=== PATIENT | female | born 1970 | race Caucasian/White ===

== ENCOUNTER 2017-07-21 12:32 | Emergency (ER) | payer SELFPAY ==
[2017-07-21 13:02] VITALS: TEMP 97.9
--- NOTE | 2017-07-21 13:11 | ED.PDOC ---
History of Present Illness - General Chief Complaint: ENT Problem Stated Complaint: right ear pain Time Seen by Provider: 07/21/17 12:58 Source: patient Exam Limitations: no limitations - History of Present Illness Initial Comments: PT REPORTS RIGHT EAR PAIN, RIGHT SIDED NECK PAIN X 1.5 WKS ASSOCIATED WITH A NON PRODUCTIVE COUGH. PT REPORTS THAT SHE HAS HAD EXPOSURE TO STREP BOTH HER GRANDPARENTS WERE RECENTLY DIAGNOSED. PT DENIES SORE THROAT OR FEVER. Timing/Duration: last week Severity: mild EENT Location: ear (R) Prearrival Treatment: no prearrival treatment Improving Factors: nothing Worsening Factors: nothing Associated Symptoms: cough Allergies/Adverse Reactions: Allergies Aspirin Allergy (Verified 07/21/17 13:04) Codeine Allergy (Verified 07/21/17 13:04) Home Medications: Ambulatory Orders Benzonatate Perles [Tessalon Perles] 200 mg PO TID PRN #30 cap 07/21/17 Ibuprofen 800 mg PO Q8HR PRN #30 tab 07/21/17 Review of Systems - Review of Systems Constitutional: Denies: chills, fever EENTM: States: see HPI, ear pain. Denies: nose congestion, throat pain, mouth swelling Respiratory: States: see HPI, cough. Denies: short of breath Cardiology: Denies: chest pain, palpitations Gastrointestinal/Abdominal: Denies: abdominal pain, vomiting Past Medical History (General) - Patient Medical History Hx Seizures: No Hx Stroke: No Hx Asthma: No Hx of COPD: No Hx Cardiac Disorders: No Hx Gastroesophageal Reflux: No Surgical History: cholecystectomy - Social History Hx Tobacco Use: Yes Cigarettes Packs Per Day: 1 Family Medical History - Family History Mother Family History: Unknown Physical Exam - Physical Exam General Appearance: Alert, Comfortable, No apparent distress, Well Developed, Well Groomed, Well Hydrated Eye Exam: bilateral normal Ear Exam: bilateral ear: auricle normal, canal normal, TM normal Nasal Exam: normal inspection Throat Exam: other - MILD PHARYNGEAL ERYTHEMA Neck: normal inspection, tender lateral - ON RIGHT Cardiovascular/Respiratory: regular rate, rhythm, no M/R/G, normal breath sounds , no respiratory distress Neurologic: alert, normal mood/affect, oriented x 3 Skin Exam: normal color, warm/dry Progress - Results/Orders Results/Orders: 07/21/17 13:26 GROUP A STREP SCREEN,PCR Stat Laboratory Results - last 24 hr 07/21/17 13:26 Group A Strep Rapid Cancelled Group A Strep DNA Negative Departure - Departure Clinical Impression: Bronchitis, Viral syndrome Time of Disposition: 13:59 Disposition: Discharge to Home or Self Care Condition: Good Departure Forms: ED Discharge - Pt. Copy, Patient Portal Self Enrollment Instructions: DI for Acute Bronchitis, DI for Viral Syndrome Referrals: [facility] [Provider Group] - 1-2 Weeks Prescriptions: Ibuprofen 800 mg PO Q8HR PRN #30 tab PRN Reason: Pain Benzonatate Perles [Tessalon Perles] 200 mg PO TID PRN #30 cap PRN Reason: Cough Home Medications: Ambulatory Orders Benzonatate Perles [Tessalon Perles] 200 mg PO TID PRN #30 cap 07/21/17 Ibuprofen 800 mg PO Q8HR PRN #30 tab 07/21/17
[2017-07-21 14:11] VITALS: BP 131/82; O2SAT 93
== END 2017-07-21 14:11 | disposition home or self-care (01) ==
LOC: ER 12:32
DX: J40 Bronchitis, not specified as acute or chronic (principal); B34.9 Viral infection, unspecified; F17.210 Nicotine dependence, cigarettes, uncomplicated; Z88.6 Allergy status to analgesic agent

== ENCOUNTER 2017-07-28 20:25 | Emergency (ER) | payer SELFPAY ==
[2017-07-28 20:41] VITALS: BP 145/85
--- NOTE | 2017-07-28 20:52 | ED.PDOC ---
History of Present Illness - General Chief Complaint: Respiratory Problem Stated Complaint: cough, congestion, itchy watery eyes Time Seen by Provider: 07/28/17 20:27 Source: patient, RN notes reviewed, Vital Signs reviewed Exam Limitations: no limitations - History of Present Illness Comments: Patient comes in with c/o of sore throat, fever to 99, chills, congestion and cough for the past 2.5 weeks. She was seen here 1 week ago with similar symptoms and a negative strep test. She has not improved with conservative treatment. Timing/Duration: constant - for 2.5 weeks Cough Quality/Degree: moderate Possible Cause: no prior episodes Improving Factors: nothing Worsening Factors: nothing Associated Symptoms: cough, fever/chills, muscle aches, nasal congestion, nasal drainage, sore throat Allergies/Adverse Reactions: Allergies Aspirin Allergy (Verified 07/28/17 20:42) Codeine Allergy (Verified 07/28/17 20:42) Home Medications: Ambulatory Orders Benzonatate Perles [Tessalon Perles] 200 mg PO TID PRN #30 cap 07/21/17 Ibuprofen 800 mg PO Q8HR PRN #30 tab 07/21/17 Azithromycin Susp 200Mg/5Ml [Zithromax Susp 200mg/5ml] 12.5 ml PO DAILY #50 ml 07/28/17 Review of Systems - Review of Systems Constitutional: States: chills, fever, malaise EENTM: States: nose congestion, throat pain Respiratory: States: cough Cardiology: States: no symptoms reported Gastrointestinal/Abdominal: States: no symptoms reported Musculoskeletal: States: muscle pain Skin: States: no symptoms reported Neurological: States: headache All other Systems: No Change from Baseline Past Medical History (General) - Patient Medical History Hx Seizures: No Hx Stroke: No Hx Asthma: No Hx of COPD: No Hx Cardiac Disorders: No Hx Gastroesophageal Reflux: No Surgical History: cholecystectomy - Vaccination History Hx Tetanus, Diphtheria Vaccination: No Hx Influenza Vaccination: No Hx Pneumococcal Vaccination: No - Social History Hx Tobacco Use: Yes Family Medical History - Family History Mother Family History: Unknown Physical Exam - Physical Exam General Appearance: Alert, Ill Appearing, Well Developed, Well Groomed, Well Hydrated, Well Nourished ENT Exam: hearing grossly normal, TMs normal, pharyngeal erythema Neck: full range of motion, supple, lymphadenopathy (R), lymphadenopathy (L) Respiratory: lungs clear, normal breath sounds, no respiratory distress, no accessory muscle use Cardiovascular/Chest: regular rate, rhythm, no gallop, no murmur Extremity: normal inspection Neurologic: alert, normal mood/affect, oriented x 3 Skin Exam: normal color, warm/dry Comments: Vital Signs 07/28/17 20:36 Temperature 99 F Pulse Rate [ 100 H left] Respiratory 18 Rate Blood Pressure 145/85 [left] O2 Sat by Pulse 93 L Oximetry Progress - Progress Progress: 07/28/17 21:04 Will give Zithromax 500mg PO and Solu-Medrol 125mg IM Departure - Departure Clinical Impression: Upper respiratory infection Qualifiers: URI type: unspecified URI Qualified Code(s): J06.9 - Acute upper respiratory infection, unspecified Acute pharyngitis, unspecified Qualifiers: Pharyngitis/tonsillitis etiology: unspecified etiology Qualified Code(s): J02.9 - Acute pharyngitis, unspecified Time of Disposition: 21:12 Disposition: Discharge to Home or Self Care Condition: Fair Departure Forms: ED Discharge - Pt. Copy, Patient Portal Self Enrollment Instructions: DI for Pharyngitis/Tonsillopharyngitis -- Adult, DI for Viral Upper Respiratory Infection -- Adult Diet: resume usual diet Activity: increase activity as tolerated Prescriptions: Azithromycin Susp 200Mg/5Ml [Zithromax Susp 200mg/5ml] 12.5 ml PO DAILY #50 ml Home Medications: Ambulatory Orders Benzonatate Perles [Tessalon Perles] 200 mg PO TID PRN #30 cap 07/21/17 Ibuprofen 800 mg PO Q8HR PRN #30 tab 07/21/17 Azithromycin Susp 200Mg/5Ml [Zithromax Susp 200mg/5ml] 12.5 ml PO DAILY #50 ml 07/28/17
[2017-07-28] MEDS ORDERED: methylPREDNISolone SODIUM SUC 125 MG/2 ML VIAL IM ONE (20:56)
[2017-07-28] MEDS ORDERED: AZITHROMYCIN 200 MG/5 ML 15ml BOTTLE PO ONE (20:56)
[2017-07-28 21:29] VITALS: TEMP 98.4; O2SAT 98
== END 2017-07-28 21:29 | disposition home or self-care (01) ==
LOC: ER 20:25
DX: J06.9 Acute upper respiratory infection, unspecified (principal); Z87.891 Personal history of nicotine dependence; Z88.6 Allergy status to analgesic agent

== ENCOUNTER 2018-09-04 17:10 | Emergency (ER) | payer SELFPAY ==
--- NOTE | 2018-09-04 17:35 | ED.PDOC ---
History of Present Illness - General Chief Complaint: Skin/Abrasion/Tear Stated Complaint: RASH Time Seen by Provider: 09/04/18 17:32 Source: patient, RN notes reviewed Exam Limitations: no limitations - History of Present Illness Initial Comments: THE PATIENT PRESENTS TO THE ED WITH COMPLAINT OF "RASH "THAT HAS BEEN ON HER CHEST WELL BILATERAL LOWER EXTREMITIES OVER THE PAST 48-72 HOURS. THE PATIENT STATES THAT THIS IS ITCHY IN NATURE WELL ROUGH TO THE TOUCH. THE PATIENT STATES SHE HAS NO FEVER OR CHILLS WITH THIS ISSUE. THE PATIENT DENIES NEW PLANT/ANIMAL/SOAP EXPOSURES AT THIS TIME. THE PATIENT STATES THAT THIS IS AGGRAVATED BY CLOTHS RUBBING AGAINST HER SKIN AND DENIES ALLEVIATING FACTORS Allergies/Adverse Reactions: Allergies Aspirin Allergy (Verified 07/28/17 20:42) Codeine Allergy (Verified 07/28/17 20:42) Home Medications: Ambulatory Orders Benzonatate Perles [Tessalon Perles] 200 mg PO TID PRN #30 cap 07/21/17 Ibuprofen 800 mg PO Q8HR PRN #30 tab 07/21/17 Azithromycin Susp 200Mg/5Ml [Zithromax Susp 200mg/5ml] 12.5 ml PO DAILY #50 ml 07/28/17 Doxycycline (Monohydrate) [Doxycycline Monohydrate] 100 mg PO BID #20 tab Mupirocin 2 % Oint [Bactroban Oint] 1 applic TOP TID 10 Days #40 gm 09/04/18 Review of Systems - Review of Systems Review of Systems: 09/04/18 17:35 A 10 point review of system has been done at the patient's bedside and is negative except as noted in the HPI Past Medical History (General) - Patient Medical History Hx Seizures: No Hx Stroke: No Hx Asthma: No Hx of COPD: No Hx Cardiac Disorders: No Hx Gastroesophageal Reflux: No - Vaccination History Hx Tetanus, Diphtheria Vaccination: No Hx Influenza Vaccination: No Hx Pneumococcal Vaccination: No - Social History Hx Tobacco Use: Yes Family Medical History - Family History Mother Family History: Unknown Physical Exam - Physical Exam General Appearance: Alert, Well Developed, Well Groomed, Well Hydrated, Well Nourished, Other - NONSEPTIC APPEARING. Ears, Nose, Throat: hearing grossly normal, normal ENT inspection Neck: full range of motion, supple Respiratory: chest non-tender, lungs clear Cardiovascular/Chest: normal peripheral pulses, regular rate, rhythm Gastrointestinal/Abdominal: normal bowel sounds, non tender, soft, no organomegaly Back Exam: normal inspection Extremity: normal range of motion Neurologic: alert, normal mood/affect, oriented x 3 Skin Exam: rash - RAISED SMALL AREAS OF ERYTHEMA THAT ARE INDURATED IN THE REGIONS OF HAIR FOLLICLES. THIS APPEARS TO BE CONSISTENT W/ FOLLICULITIS. Lymphatic: no adenopathy Progress - Progress Progress: 09/04/18 17:42 THE PATIENT'S PRESENTATION APPEARS TO BE CONSISTENT WITH AN ACUTE EPISODE OF FOLLICULITIS AT THIS TIME. THE PATIENT WILL RECEIVE A CBC TO EVALUATE FOR WHITE BLOOD CELL COUNT ELEVATION WHICH WOULD GIVE US A LOOK INTO THE SEVERITY OF INFECTION IN THIS PATIENT. SHE WILL ALSO RECEIVE A METABOLIC PANELS TO EVALUATE FOR ELECTROLYTE DERANGEMENT/DEHYDRATION/GLUCOSE ABNORMALITIES. THE PATIENT'S DISPO WILL BE DEPENDENT UPON THE PATENT'S ED COURSE. 09/04/18 18:34 THE PATIENT IS DOING WELL AT THIS TIME. SHE HAS BEEN ADVISED OF ALL LAB RESULTS AT THIS TIME. SHE IS ADVISED THAT SHE WILL BE PLACED ON PO DOXYCYCLINE WELL TOPICAL MUPIROCIN FOR HER FOLLICULITIS. SHE IS ADVISED TO F/U WITH HER PCP TOMORROW AM FOR RECHECK OF THIS ISSUE. SHE IS ADVISED TO RETURN TO THE ED IF ANY CONCERNS ARISE SUCH WORSENING RASH, FEVER, HEADACHE OR ANY OTHER ISSUES ARISE. THE PATIENT VERBALIZED UNDERSTANDING OF THESE INSTRUCTIONS. 09/04/18 18:38 Departure - Departure Clinical Impression: Folliculitis Disposition: Discharge to Home or Self Care Departure Forms: ED Discharge - Pt. Copy, Patient Portal Self Enrollment Instructions: Folliculitis Diet: resume usual diet Referrals: Gonzalo Tena MD [Active Staff] - 1-2 Days (PLEASE SEE DR. TENA TOMORROW AM. IF YOU DO NOT WANT TO SEE DR. TENA PLEASE CALL A PCP OF YOUR CHOICE. RETURN TO THE ED IF ANY ACUTE CONCERNS ARISE.) Prescriptions: Doxycycline (Monohydrate) [Doxycycline Monohydrate] 100 mg PO BID #20 tab Mupirocin 2 % Oint [Bactroban Oint] 1 applic TOP TID 10 Days #40 gm Home Medications: Ambulatory Orders Benzonatate Perles [Tessalon Perles] 200 mg PO TID PRN #30 cap 07/21/17 Ibuprofen 800 mg PO Q8HR PRN #30 tab 07/21/17 Azithromycin Susp 200Mg/5Ml [Zithromax Susp 200mg/5ml] 12.5 ml PO DAILY #50 ml 07/28/17 Doxycycline (Monohydrate) [Doxycycline Monohydrate] 100 mg PO BID #20 tab Mupirocin 2 % Oint [Bactroban Oint] 1 applic TOP TID 10 Days #40 gm 09/04/18
[2018-09-04 17:43] VITALS: BP 146/83; TEMP 96.9; O2SAT 95
== END 2018-09-04 19:00 | disposition home or self-care (01) ==
LOC: ER 17:10
DX: L73.9 Follicular disorder, unspecified (principal); Z87.891 Personal history of nicotine dependence; Z88.6 Allergy status to analgesic agent